=== PATIENT | male | born 1985 | race Caucasian/White ===

== ENCOUNTER 2025-03-11 17:07 | Emergency (ER) | payer OTHER, SELFPAY ==
[2025-03-11 17:09] VITALS: BP 172/122
[2025-03-11 17:44] LABS: Hematocrit 44.5 % (39.0-52.0); Hemoglobin 15.6 g/dL (13.0-18.0); Mean Corp Hgb Conc. 35.1 g/dL (33.0-37.0); Mean Corpuscular Volume 92.3 fL (80.0-94.0); Nucleated Red Blood Cells % 0 % (-); Platelet Count 206 10^3/uL (130-400); Red Cell Dist. Width 12.1 % (11.5-14.5)
[2025-03-11 17:55] LABS: INR 1.05; PT 14.0 Sec (11.4-14.6)
[2025-03-11 17:56] LABS: APTT 25.4 Sec (23.4-35.0)
[2025-03-11 18:07] LABS: Calcium 9.8 mg/dl (8.4-10.2); Carbon Dioxide 27 mmol/L (22-30); Chloride 97 mmol/L (98-107); Glucose 90 mg/dl (70-99); Sodium 136 mmol/L (135-145); eGFR > 60.00
[2025-03-11 18:10] LABS: Troponin I < 0.012 ng/ml
[2025-03-11 18:40] LABS: Blood Urea Nitrogen 18 mg/dl (9-20)
[2025-03-11 19:34] VITALS: BP 163/104
[2025-03-11 20:00] VITALS: BP 143/100
--- NOTE | 2025-03-11 20:53 | ED.GENMED ---
History of Present Illness
General
Chief Complaint: Chest Pain
Source: patient and spouse
Exam Limitations: none
Time Seen by Provider: 03/11/25 20:37
Nursing documentation reviewed up to this point in time: agreed with
History of Present Illness
History of Present Illness:
39-year-old male drinker non-smoker [place] not on meds presents with chest pressure since early this morning radiates into his neck had a hard time getting a deep breath nausea with some blood in his vomitus, no fevers no abdominal pain, took some baby
aspirin does use aspirin or NSAIDs chronically, father grandfather had CAD 50s to 60s, no personal history of CAD no calf pain no history of DVT PE has what sounds like a Yvette-Cornejo tear previously this is unconfirmed
Past History
Past History
ED Past Medical History: GERD and Other (MS)
ED Past Surgical History: None
Social History
Tobacco: Non-smoker
Alcohol: Occasional
Drug: None
Personal:
Living: with family
Employment: Employed
Family History
Family History: CAD; Negative Diabetes, Hypertension, Early CAD, Asthma or Cancer
Review of Systems
Review of Systems
All Other Systems: Not applicable
Constitutional: Denies fever or fatigue
Respiratory: Reports trouble breathing; Denies cough
Cardiac: Reports chest pain; Denies syncope
ABD/GI: Reports nausea and vomiting
: Reports no symptoms
Musculoskeletal: Reports no symptoms
Skin: Reports no symptoms
Neurological: Reports no symptoms
Phy Exam
Physical Exam
Physical Exam:
Physical Exam
General: no apparent distress, not acutely ill
Neck: No jaundice
Heart: Tachycardia
Lungs: no acute respiratory distress. clear bilaterally
Abdomen: Soft nontender
Neuro: alert and oriented. no focal neurological deficits
Skin: no rash
Psychiatric: well kept. interactive and cooperative
Extremities: no edema.
Scores
Heart Score for Chest Pain Patients
STEMI patient?: No
History: Slightly or Non-Suspicious
ECG: Nonspecific Repolarization
Age: </= 45 years
Risk Factors: 1 or 2 Risk Factors
Troponin: </= Normal Limit
Heart Score for Chest Pain Patients: 2
Heart Score Risk: 2.5% MACE over next 6 weeks
Course
Orders/Labs/Results
Orders:
Orders
03/11/25 17:12
Electrocardiogram (*1) Urgent
Reason for Study: Chest Pain
EKG- Treatment ONCE
03/11/25 17:31
Basic Metabolic Panel Urgent
Complete Blood Count/With Diff Urgent
PT/INR [Prothrombin Time] Urgent
PTT Urgent
Troponin I Urgent
03/11/25 18:54
Electrocardiogram (*1) Urgent
Reason for Study: Chest Pain
EKG- Treatment ONCE
03/11/25 20:50
0.9% Sodium Chloride 1000 ml [Nss] 1,000 ml IV BOLUS
Ondansetron Injectable [Zofran] 4 mg IV NOW STA
Pantoprazole [Protonix IV] 40 mg IV NOW STA
CR Chest - 2 Views Urgent
Comment:
Reason For Exam: cp
03/11/25 21:08
D-Dimer Urgent
Troponin I Urgent
Abnormal Lab Results
03/11/25
17:31
MCH 32.4 H pg
(27.0-31.0)
Absolute Lymphs (auto) 1.1 L 10^3/uL
(1.2-3.4)
Chloride 97 L mmol/L
(98-107)
03/11/25 17:31
03/11/25 17:31
Vital Signs
Initial and Last Documented VS:
Initial Vital Signs
Temp Pulse Resp BP Pulse Ox
98.2 F 122 20 172/122 98
03/11/25 17:09 03/11/25 17:09 03/11/25 17:09 03/11/25 17:09 03/11/25 17:09
Last Documented Vital Signs
Temp Pulse Resp BP Pulse Ox
98.2 F 103 13 143/100 98
03/11/25 17:09 03/11/25 21:30 03/11/25 21:30 03/11/25 20:00 03/11/25 21:30
MDM/Problems Addressed
Differential Diagnosis Includes:
GERD gastritis pancreatitis PE ACS dehydration
MDM/Problems Addressed:
Chest pain
Chronic conditions affecting care:
MS GERD
Acute Exacerbation and/or Progression of Chronic Illness:
MS GERD
*Radiology
Radiology exam reviewed: preliminary read by ED provider
*Pulse Oximetry
SaO2: 98
Oxygen Mode of Delivery: Room air
Patient hypoxic: no (99)
*EKG
Interpreted by ED Provider?: Yes
Interpretation: abnormal
Comparison EKG: no comparison EKG present
Heart Rate: 110
Rate: tachycardiac
Rhythm: sinus
Ischemia: non-specific ST changes
*Dry Transfer Worker Interpretation
Rate: tachycardiac
Interpretation: abnormal
Heart Rate: 110
Rhythm: sinus
*Critical Care Note
Total Time (30-74mins, 75-104mins- exclusive of procedures): Not Applicable
Update Note
Update Note:
10:20 PM chest x-ray noted formal report pending troponin x 2 noted D-dimer noted
ED Attending Note
-
Portions of this chart may have been created with voice recognition software.� Occasional wrong word or��sound alike� substitutions may have occurred due to the inherent limitations of voice recognition software.
Discharge Plan
Departure
Patient Disposition: Home (Routine Discharge)
Date of Disposition: 03/11/25
Time of Disposition: 22:28
Patient with high blood pressure during this ER visit?: Yes
Condition: Good
Discharge Problem:
Chest pain
Instructions: Chest Pain CBC Follow Up
Prescriptions:
New
pantoprazole [Protonix] 40 mg tablet,delayed release (DR/EC)
40 mg PO DAILY Qty: 30 0RF
amlodipine [Norvasc] 5 mg tablet
5 mg PO DAILY Qty: 30 0RF
aspirin 81 mg tablet
81 mg PO DAILY Qty: 30 0RF
No Action
omeprazole magnesium [Prilosec OTC] 20 MG tablet,delayed release (DR/EC)
20 mg PO BID
prednisone 10 MG tablet
10 mg PO DAILY AT 0700
Patient Comments:
4x/day for 3 days, 3x/day for 3 days, 2x/day for 3 days, 1x/day for 3 days. starting 11/17.
CENTRUM COMPLETE MULTIVIT TAB
ondansetron 4 MG tablet,disintegrating
4 mg PO TIDPRN PRN (Reason: nausea) Qty: 7 0RF
Referrals:
Latrice Enamorado DO [Family Provider, Family Practice] - Follow up in 2-3 days
Jong Graves MD [Active, Cardiology] - Next open appointment
Interventions
Interventions:
*Risk Screen - Suicide Last Done: 03/11/25 17:09
*General Assessment Last Done: 03/11/25 17:09
*Neglect/Abuse Screening Last Done: 03/11/25 21:47
*ED COVID-19 Vaccine History Last Done: 03/11/25 21:46
*ED Influenza Vaccine History Last Done: 03/11/25 21:46
*Nursing Disposition Last Done: 03/11/25 22:36
ED- Cardiac Assessment Last Done: 03/11/25 21:46
Discharge Date and Time
Discharge Date/Time: 03/11/25 22:36
Print Language: JAPANESE
[2025-03-11] MEDS: ZOFRAN 4 MG IV (21:02)
[2025-03-11] MEDS: PROTONIX IV 40 MG IV (21:02)
[2025-03-11] MEDS: NSS 1000 IV (21:03)
[2025-03-11 21:52] LABS: Troponin I < 0.012 ng/ml
[2025-03-11 22:11] LABS: D-Dimer 0.49 ug/mlFEU (0.00-0.50)
== END 2025-03-11 22:36 | disposition home or self-care (01) ==
LOC: EMR 17:07
PROVIDERS: Emergency Medicine; EMERGENCY PHYSICIAN Emergency Medicine; FAMILY PHYSICIAN Family Medicine
DX: R07.89 Other chest pain (principal); R00.0 Tachycardia, unspecified; G35 Multiple sclerosis; K21.9 Gastro-esophageal reflux disease without esophagitis; Z82.49 Family history of ischemic heart disease and other diseases of the circulatory system
CPT/HCPCS: 99285; 96374; 96375; 71046; 80048; 84484; 85025; 85379; 85610; 85730; 93005